=== PATIENT | male | born 1990 | race Caucasian/White ===

== ENCOUNTER 2017-08-22 16:07 | Emergency (ER) | payer OTHER ==
[~2017-08-22] VITALS: Ht 182.9 cm; Wt 72.6 kg
[~2017-08-22 16:07] MED LIST: AZIT250 PO; CRUTCH4 USE; HYDACE5 PO; HYDGUAL120 PO; IBUP800 PO
[2017-08-22] MEDS ORDERED: IBUP600 PO (17:50)
[2017-08-22] MEDS ORDERED: Norco 5-325 Ta1 EACH PO (17:50)
[2017-08-22] MEDS ORDERED: ERYT1OIN RIGHTEYE (17:50)
== END 2017-08-22 18:04 | disposition home or self-care (01) ==
LOC: ER 16:07
DX: H20.9 Unspecified iridocyclitis (principal)
CPT/HCPCS: 99283

== ENCOUNTER 2019-01-06 05:27 | Emergency (ER) | payer OTHER ==
[~2019-01-06] VITALS: Ht 180.3 cm; Wt 65.8 kg
[~2019-01-06 05:27] MED LIST changes: +ERYT1OIN RIGHTEYE; +IBUP600 PO; +Norco 5-325 Ta1 EACH PO
[2019-01-06] MEDS ORDERED: Norco 5-325 Ta1 EACH PO (07:15)
[2019-01-06] MEDS ORDERED: Cleocin HCl150 MG PO (07:15)
== END 2019-01-06 07:40 | disposition home or self-care (01) ==
LOC: ER 05:27
DX: S61.012A Laceration without foreign body of left thumb without damage to nail, initial encounter (principal); F17.200 Nicotine dependence, unspecified, uncomplicated; W26.0XXA Contact with knife, initial encounter
CPT/HCPCS: 12002; 73130; 90471; 90714; 96372-59; 99283-25; J3010

== ENCOUNTER 2019-07-28 16:08 | Emergency (ER) | payer OTHER ==
[~2019-07-28] VITALS: Ht 180.3 cm; Wt 72.6 kg
[~2019-07-28 16:08] MED LIST changes: +Cleocin HCl150 MG PO
[2019-07-28 17:22] LABS: BASOPHILS ABSOLUTE AUTO 0.05 K/mm3 (0.00-0.23); BASOPHILS PERCENT AUTO 0 % (0-2); EOSINOPHILS ABSOLUTE AUTO 0.13 K/mm3 (0.00-0.68); EOSINOPHILS PERCENT AUTO 1 % (0-6); Hematocrit 46.2 % (37.0-53.0); Hemoglobin 14.7 g/dL (13.5-17.5); IMMATURE GRAN ABSOLUTE AUTO 0.03 K/mm3 (0.00-0.10); IMMATURE GRAN PERCENT AUTO 0 % (0-1); LYMPHOCYTES ABSOLUTE AUTO 1.66 K/mm3 (0.84-5.20); LYMPHOCYTES PERCENT AUTO 13 % (21-46); MONOCYTES ABSOLUTE AUTO 1.02 K/mm3 (0.16-1.47); MONOCYTES PERCENT AUTO 8 % (4-13); Mean Corpuscular HGB 28.2 pg (26.0-34.0); Mean Corpuscular HGB Conc 31.8 g/dL (31.5-36.5); Mean Corpuscular Volume 89 fL (80-100); Mean Platelet Volume 10.4 fL (9.1-12.4); NEUTROPHILS ABSOLUTE AUTO 10.06 K/mm3 (1.96-9.15); NEUTROPHILS PERCENT AUTO 78 % (41-73); Platelet Count 280 K/mm3 (150-400); RDW Coefficient Variation 13.2 % (11.7-14.2); RDW Standard Deviation 42.8 fL (35.1-46.3); Red Blood Cell Count 5.22 M/mm3 (4.30-5.90); White Blood Cell Count 12.95 K/mm3 (4.00-11.30)
[2019-07-28 17:27] LABS: Anion Gap 5 mmol/L (6-16); Blood Urea Nitrogen 15 mg/dL (8-24); Bun/Creatinine Ratio 19.8 (12.0-20.0); CO2, Blood 30 mmol/L (21-32); Calcium, Blood 8.6 mg/dL (8.5-10.1); Chloride, Blood 102 mmol/L (98-108); Creatinine, Blood 0.76 mg/dL (0.60-1.20); Glomerular Filtration Rate >60 (60-); Glucose, Blood 103 mg/dL (70-99); Potassium, Blood 4.1 mmol/L (3.5-5.5); Sodium, Blood 137 mmol/L (136-145)
[2019-07-28] MEDS ORDERED: Augmentin 875-1 EACH PO (18:35)
== END 2019-07-28 19:15 | disposition home or self-care (01) ==
LOC: ER 16:08
PROVIDERS: Physician Assistant
DX: L03.113 Cellulitis of right upper limb (principal); F17.200 Nicotine dependence, unspecified, uncomplicated
CPT/HCPCS: 36415; 73130; 80048; 83605; 85025; 96365; 99283-25; J0696

== ENCOUNTER 2019-11-19 19:39 | Emergency (ER) | payer OTHER ==
[~2019-11-19 19:39] MED LIST changes: +Augmentin 875-1 EACH PO
== END 2019-11-19 20:00 | disposition left against medical advice (07) ==
LOC: ER 19:39
DX: Z53.21 Procedure and treatment not carried out due to patient leaving prior to being seen by health care provider (principal)

== ENCOUNTER 2019-12-26 10:04 | Emergency (ER) | payer OTHER ==
[~2019-12-26] VITALS: Ht 182.9 cm; Wt 72.6 kg
[2019-12-26] MEDS ORDERED: IBU800 MG PO (15:37)
== END 2019-12-26 11:10 | disposition left against medical advice (07) ==
LOC: ER 10:04
DX: S92.321A Displaced fracture of second metatarsal bone, right foot, initial encounter for closed fracture (principal); F17.200 Nicotine dependence, unspecified, uncomplicated; X58.XXXA Exposure to other specified factors, initial encounter
CPT/HCPCS: 73630; 99283-25

== ENCOUNTER 2020-07-25 01:10 | Emergency (ER) | payer SELFPAY ==
[~2020-07-25] VITALS: Ht 182.9 cm; Wt 72.6 kg
[~2020-07-25 01:10] MED LIST changes: +IBU800 MG PO
[2020-07-25] MEDS ORDERED: IBUP800 PO (02:12)
== END 2020-07-25 02:17 | disposition home or self-care (01) ==
LOC: ER 01:10
DX: S06.0X9A Concussion with loss of consciousness of unspecified duration, initial encounter (principal); S16.1XXA Strain of muscle, fascia and tendon at neck level, initial encounter; F17.200 Nicotine dependence, unspecified, uncomplicated; V86.55XA Driver of 3- or 4- wheeled all-terrain vehicle (ATV) injured in nontraffic accident, initial encounter; Y92.410 Unspecified street and highway as the place of occurrence of the external cause
CPT/HCPCS: 70450; 72125; 99283-25

== ENCOUNTER 2024-05-29 13:29 | Emergency (ER) | payer OTHER ==
[~2024-05-29] VITALS: Ht 182.9 cm; Wt 81.7 kg
[2024-05-29 13:36] VITALS: BP 156/97
[2024-05-29] MEDS ORDERED: Methadone HCL 10 MG TAB PO ONE (14:05)
[2024-05-29] MEDS ORDERED: METH10 PO (14:33)
== END 2024-05-29 14:34 | disposition home or self-care (01) ==
LOC: ER 13:29
DX: F11.90 Opioid use, unspecified, uncomplicated (principal); Z76.0 Encounter for issue of repeat prescription
CPT/HCPCS: 99281; A9270

== ENCOUNTER 2024-05-30 13:33 | Emergency (ER) | payer OTHER ==
[~2024-05-30] VITALS: Ht 182.9 cm; Wt 81.7 kg
[~2024-05-30 13:33] MED LIST changes: +METH10 PO
[2024-05-30 13:40] VITALS: BP 137/91
[2024-05-30] MEDS ORDERED: Methadone HCL 10 MG TAB PO ONE (13:50)
== END 2024-05-30 15:10 | disposition home or self-care (01) ==
LOC: ER 13:33
DX: Z76.89 Persons encountering health services in other specified circumstances (principal); F11.90 Opioid use, unspecified, uncomplicated; F17.200 Nicotine dependence, unspecified, uncomplicated; Z79.899 Other long term (current) drug therapy
CPT/HCPCS: 99281; A9270

== ENCOUNTER 2024-07-04 18:02 | Emergency (ER) | payer OTHER ==
[~2024-07-04] VITALS: Ht 175.3 cm; Wt 68.0 kg
[2024-07-04 18:29] VITALS: BP 173/91
[2024-07-04] MEDS ORDERED: Methadone HCL 10 MG TAB PO ONE (20:50)
== END 2024-07-04 21:09 | disposition home or self-care (01) ==
LOC: ER 18:02
DX: Z76.89 Persons encountering health services in other specified circumstances (principal); F17.200 Nicotine dependence, unspecified, uncomplicated; Z79.891 Long term (current) use of opiate analgesic
CPT/HCPCS: 99281; A9270

== ENCOUNTER 2024-07-11 19:31 | Emergency (ER) | payer OTHER ==
[~2024-07-11] VITALS: Ht 182.9 cm; Wt 81.7 kg
[2024-07-11 20:08] VITALS: BP 153/98
[2024-07-11] MEDS ORDERED: Methadone HCL 10 MG TAB PO ONE (21:00)
== END 2024-07-11 21:56 | disposition home or self-care (01) ==
LOC: ER 19:31
DX: Z76.89 Persons encountering health services in other specified circumstances (principal); F11.20 Opioid dependence, uncomplicated; F17.200 Nicotine dependence, unspecified, uncomplicated
CPT/HCPCS: 99281